=== PATIENT | male | born 1990 | race Caucasian/White ===

== ENCOUNTER 2018-11-24 01:23 | Emergency (ER) | payer SELFPAY ==
[~2018-11-24] VITALS: Ht 170.2 cm; Wt 72.0 kg
--- NOTE | 2018-11-24 01:36 | NUR ---
assessment made. ERP at bedside.
--- NOTE | 2018-11-24 01:53 | NUR ---
URINE SAMPLE TAKEN TO LAB
[2018-11-24] MEDS ORDERED: IBUPROFEN 200 MG TABLET ONE (01:55)
[2018-11-24 01:57] VITALS: BP 109/66
--- NOTE | 2018-11-24 01:57 | NUR ---
pt medicated per mar
[2018-11-24 02:00] LABS: MICROSCOPIC NOT IND
[2018-11-24] MEDS ORDERED: IBUPROFEN 800 MG TABLET PO ONE (02:00)
[2018-11-24 02:02] LABS: CULTURE INDICATED? NO
== END 2018-11-24 03:10 | disposition left against medical advice (07) ==
LOC: ED 03:00
DX: S00.12XA Contusion of left eyelid and periocular area, initial encounter (principal); S00.83XA Contusion of other part of head, initial encounter; S20.211A Contusion of right front wall of thorax, initial encounter; Y04.0XXA Assault by unarmed brawl or fight, initial encounter; Y93.89 Activity, other specified; Y92.009 Unspecified place in unspecified non-institutional (private) residence as the place of occurrence of the external cause; Y99.8 Other external cause status
CPT/HCPCS: 71046; 81003; 99284